=== PATIENT | male | born 1970 ===

== ENCOUNTER 2018-03-13 10:40 | Emergency (ER) | payer OTHER ==
[2018-03-13 10:50] VITALS: BP 141/89; PULSE 100; RESP 18; TEMP 98.3; O2SAT 98
--- NOTE | 2018-03-13 11:15 | C.PDOC ---
History Of Present Illness 47 year old male presents to the ED complaining of foreign body sensation in his throat for the past 6 months. Patient states he ate shrimp and believes he swallowed the tail and feels like it is stuck in his throat. Patient reports occasional pain and states he has not sought prior medical attention. He denies any difficulty swallowing solids or liquids. Patient denies weight loss, or vomiting. Time Seen by Provider: 03/13/18 11:06 Chief Complaint (Nursing): ENT Problem History Per: Patient History/Exam Limitations: no limitations Onset/Duration Of Symptoms: Other (6 months ) Current Symptoms Are (Timing): Still Present Past Medical History Reviewed: Historical Data, Nursing Documentation, Vital Signs Vital Signs: Last Vital Signs Temp 98.3 F 03/13/18 10:47 Pulse 100 H 03/13/18 10:47 Resp 18 03/13/18 10:47 BP 141/89 03/13/18 10:47 Pulse Ox 98 03/13/18 11:59 - Medical History PMH: No Chronic Diseases Other Surgeries: Hx of surgeries Family History: States: No Known Family Hx - Social History Hx Alcohol Use: No Hx Substance Use: No Review Of Systems Constitutional: Negative for: Other (Weight loss) ENT: Positive for: Throat Pain Respiratory: Negative for: Cough, Shortness of Breath Gastrointestinal: Negative for: Vomiting, Abdominal Pain, Diarrhea Neurological: Negative for: Headache Physical Exam - Physical Exam Appears: Non-toxic, No Acute Distress Skin: Normal Color, Warm, Dry, No Diaphoretic, No Rash Head: Atraumatic, Normacephalic Eye(s): bilateral: Normal Inspection Oral Mucosa: Moist Teeth: Normal Dentition Gingiva: Normal Appearing Throat: No Erythema, No Exudate, No Drooling, No Other (Foreign body) Neck: Normal ROM, Supple Lymphatic: No Adenopathy, Other (Normal thyroid, no nodules) Chest: Symmetrical Cardiovascular: Rhythm Regular Respiratory: Normal Breath Sounds, No Rales, No Rhonchi, No Wheezing Extremity: Bilateral: Atraumatic, Normal ROM Neurological/Psych: Oriented x3, Normal Speech Gait: Steady ED Course And Treatment O2 Sat by Pulse Oximetry: 98 (RA) Pulse Ox Interpretation: Normal Medical Decision Making Medical Decision Making: Patient with complaints of foreign body in throat for 6 months. Patient is able to tolerate and swallow his saliva and liquids. This is not emergency and can be follow up outpatient. I advised him to see GI in the clinic for possible EGD. Disposition Counseled Patient/Family Regarding: Diagnosis, Need For Followup - Disposition Referrals: [facility] [Outside] [facility] [Outside] Disposition: HOME/ ROUTINE Disposition Time: 11:13 Condition: GOOD Additional Instructions: Missael debe verlo en la clnica y luego steve al especialista en gastroenterolog a para recibir ms martinez, jojo endoscopia. Prescriptions: Ranitidine HCl [Acid Plant Technician] 150 mg PO BID #30 tablet Instructions: Dysphagia (DC) Forms: [employer] (Swedish) Print Language: IRANIAN - POA Present On Arrival: None - Clinical Impression Clinical Impression: Odynophagia, Sensation of foreign body in esophagus - PA / CLOTH STOCK SORTER / Resident Statement MD/DO has reviewed & agrees with the documentation as recorded. - Scribe Statement The provider has reviewed the documentation as recorded by the Scribe (Michelle Vora) All medical record entries made by the Scribe were at my direction and personally dictated by me. I have reviewed the chart and agree that the record accurately reflects my personal performance of the history, physical exam, medical decision making, and the department course for this patient. I have also personally directed, reviewed, and agree with the discharge instructions and disposition.
== END 2018-03-13 11:43 | disposition home or self-care (01) ==
LOC: C.ER 10:40
DX: R13.10 Dysphagia, unspecified (principal); R09.89 Other specified symptoms and signs involving the circulatory and respiratory systems